=== PATIENT | female | born 1975 | race Two or more races ===

== ENCOUNTER 2024-06-02 10:17 | Outpatient (REF) | payer OTHER, SELFPAY | END 2024-06-02 10:18 | disposition home or self-care (01) | LOC: HO.SH 10:17 | PROVIDERS: Visit Provider Nurse Practitioner Family | DX: Z01.118 Encounter for examination of ears and hearing with other abnormal findings (principal); H93.293 Other abnormal auditory perceptions, bilateral | CPT/HCPCS: 92557; 92567 ==